=== PATIENT | male | born 1960 | race Caucasian/White ===

== ENCOUNTER 2024-01-19 12:45 | Inpatient (IN) | payer OTHER, SELFPAY ==
--- NOTE | ~2024-01-19 | US_ITS ---
Duplex Sonography of the bilateral lower extremities: Indication: Edema Sagittal and transverse B-mode images as well as color-flow imaging were performed on the right and l eft femoral and popliteal veins. B-mode examination was done without and with compression in the tra nsverse plane. There is good visualization of the bilateral common femoral, proximal profunda femora l, superficial femoral, greater saphenous, and popliteal veins. Normal flow was seen on color-flow im aging. Normal compressibility was demonstrated. Visualized calf veins are also patent. Impression: No evidence of deep vein thrombosis involving either lower extremity. Reviewed, dictated and finalized at location M. ARTIST Impression: No evidence of deep vein thrombosis involving either lower extremit y.
--- NOTE | ~2024-01-19 | XR_ITS ---
EXAMINATION: XR chest 1V portable DATE: 01/19/2024 13:37 INDICATION: Central line placement. TECHNIQUE: A single frontal view of the chest was obtained. COMPARISON: None. FINDINGS: There is mild atelectasis in the lower lung zones. No pleural effusion or pneumothorax. The heart size is normal. A right upper extremity peripherally inserted central venous catheter (PICC) i s seen with tip at the superior cavoatrial junction. There are changes of posterior fusion procedure in lumbar spine. There are old healed right rib fractures. IMPRESSION: 1. PICC tip at the superior cavoatrial junction. 2. Mild atelectasis in the lower lung zones. Reviewed, dictated and finalized at location A. UD LINE TIER
--- NOTE | ~2024-01-19 | XR_ITS ---
EXAM: XR abdomen gastric tube insert DATE: 01/19/2024 16:09 HISTORY: NGT PLACEMENT CONFIRMATION . COMPARISON: CT abdomen pelvis, same date. FINDINGS: NG tube, tip over the stomach, side port near the GE junction. Uncomplicated thoracolumbar fusion hardware. Multilevel degenerative disc disease. Lung bases clear. Scattered loops of dilated large and small bowel. IMPRESSION: Shallow positioned NG tube, side port near the GE junction, consider advancing by 5 cm. L ikely small and large bowel ileus. Reviewed, dictated and finalized at location K. EYOR BELT INSTALLER IMPRESSION: Shallow positioned NG tube, side port near the GE junction, conside r advancing by 5 cm. Likely small and large bowel ileus.
--- NOTE | ~2024-01-19 | XR_ITS ---
Supine and upright views of the abdomen Clinical history: Ileus Findings: Multiple air distended bowel loops are present, possibly representing generalized ileus. No definite obstruction. No definite free air. No abnormal mass lesion or calcification is seen. Thorac olumbar spinal fixation hardware noted. Impression: Possible generalized ileus. Reviewed, dictated and finalized at [facility]. URCE CENTER TEACHER Impression: Possible generalized ileus.
--- NOTE | ~2024-01-19 | CT_ITS ---
EXAMINATION: CT abdomen pelvis w con DATE: 01/19/2024 14:36 INDICATION: Abdominal pain TECHNIQUE: Computed tomography (CT) of the abdomen and pelvis was performed with 100 mL Omnipaque-350 intravenous contrast. Automated exposure control and iterative reconstruction technique were employe d. The dose-length product was 1348.44 mGy-cm. COMPARISON: None. FINDINGS: Exam limited by motion artifact and beam hardening artifact. Lower thorax: The tip of a catheter is identified in the distal SVC. Bibasilar scar/atelectasis. Liver: Trace perihepatic fluid. Biliary/Gallbladder: Gallbladder is normal. No bile duct dilation. Pancreas: Moderate atrophy. Spleen: Normal. Adrenals:No mass. Kidneys: No suspicious mass, obstructing stone, or hydronephrosis. GI tract: Mild dilation of the mid and distal small bowel without focal transition point. Dilated tra nsverse colon. Fluid-filled small and large bowel. Appendix not confidently visualized. Mesentery/Peritoneum: No mass or free air. Trace paracolic gutter fluid. Retroperitoneum: No mass. Atherosclerotic abdominal aortic and/or arterial calcifications. Pelvis: Nearly empty urinary bladder. Trace free pelvic fluid. Soft Tissues: Mild body wall edema. Small uncomplicated fat-containing bilateral inguinal hernias. Bones: No acute osseous finding. Uncomplicated appearing thoracolumbar fusion hardware. IMPRESSION: Likely small bowel ileus, early obstruction not excluded. Chronic colonic dilation versus colonic ile us. Fluid-filled colon as can be seen with diarrheal illness. Mild ascites. Reviewed, dictated and finalized at location K. ORK PROFESSIONAL IMPRESSION: Likely small bowel ileus, early obstruction not excluded. Chronic colonic dilat ion versus colonic ileus. Fluid-filled colon as can be seen with diarrheal illn ess. Mild ascites.
[2024-01-19 12:50] VITALS: BP 138/108; PULSE 94; RESP 16; TEMP 36.3; O2SAT 98
[2024-01-19 13:39] LABS: Basophils Percent Auto 0.3 % (0.2-1.2); Eosinophils Percent Auto 0.5 % (0-4.4); Hematocrit 31.4 % (42.0-52.0); Hemoglobin 10.4 g/dL (14.0-18.0); Immature Granulocyte Absolute 0.07 K/mm3 (0.00-0.031); Immature Granulocyte Percent A 1.1 % (0-0.5); Lymphocytes Absolute Auto 1.14 K/mm3 (0.9-3.2); Lymphocytes Percent Auto 18.5 % (18.3-44.2); Mean Corpuscular HGB Conc 33.1 g/dl (32-36); Mean Corpuscular Hemoglobin 30.3 pg (26-34); Mean Corpuscular Volume 91.5 fl (80-100); Monocytes Absolute Auto 0.4 K/mm3 (0.1-0.6); Monocytes Percent Auto 7.2 % (2.6-8.5); Neutrophils Absolute Auto 4.5 K/mm3 (1.3-6.7); Neutrophils Percent Auto 72.4 % (45.5-73.1); Platelet Count Result 253 k/mm3 (150-375); Red Blood Count 3.43 M/mm3 (4.6-6.20); Red Cell Distribution Width 17.2 % (11.5-14.5); White Blood Count 6.2 K/mm3 (4.5-10.0)
[2024-01-19 13:47] LABS: Lactic Acid Reflex 1.1 mmol/L (0.7-2.0)
[2024-01-19 13:49] LABS: Alanine Aminotransferase 15 U/L (6-50); Alkaline Phosphatase 113 U/L (38-126); Anion Gap 8 mmol/L (4-12); Aspartate Amino Transferase 31 U/L (17-59); Bilirubin,Total 0.5 mg/dL (0.2-1.3); Blood Urea Nitrogen 12 mg/dL (9-20); Calcium 8.9 mg/dL (8.4-10.2); Carbon Dioxide 24 mmol/L (22-30); Chloride 102 mmol/L (98-107); Estimated CRCL calculation 128 ml/min; Estimated Glomerular Filt Rate > 60; Glucose 116 mg/dL (65-110); Lipase 33 U/L (23-300); Potassium 3.8 mmol/L (3.4-5.0); Sodium 134 mmol/L (137-145)
[2024-01-19 14:00] VITALS: BP 130/88; PULSE 90; RESP 16; O2SAT 100
[2024-01-19] MEDS: ONDANSETRON INJ 4 MG/2 ML VIAL IV PUSH (14:00)
[2024-01-19 14:09] LABS: Add Urine Microscopic? YES; Appearance Urine Turbid (Clear); Bacteria Urine None Seen /hpf; Bilirubin Urine 1+ (Negative); Blood Urine Trace (Negative); Color Urine Dark Yellow (Yellow); Glucose Urine UA Negative (Negative); Hyaline Casts Urine Present /lpf; Ketones Urine Trace mg/dL (Negative); Leukocyte Esterase Ur 2+ LEU/UL (Negative); Nitrate Urine Negative (Negative); Non Pathogenic Casts >20; Protein Urine 1+ mg/dL (Negative); Specific Grav Ur 1.021 (1.001-1.035); Squamous Epithelial Cell Urine None Seen /hpf (Few); Urobilinogen Urine 0.2 mg/dL (<2.0); WBC Urine >100 /hpf (0-3)
--- NOTE | 2024-01-19 14:23 | ED.GENADULT ---
HPI - General Adult General Chief complaint: Nausea/Vomiting/Diarrhea Stated complaint: ileus, n/v Time Seen by Provider: 01/19/24 13:03 History of Present Illness HPI narrative: Patient 63-year-old gentleman who presents emergency department with chief complaint of nausea and vomiting. Patient has had nausea and vomiting for last 2 days had an x-ray at [facility] that showed a possible ileus the patient has been having bowel movements and had a bowel movement just prior to arriving in the emergency department the provider at the rehab facility sent the patient in the emergency department to evaluate for possible bowel obstruction. The patient states that he has nausea reports that he has a little bit of a fullness in his abdomen but denies localizing pain Related Data Home Medications Medication Instructions Recorded Confirmed aspirin 81 mg chewable tablet 81 mg PO DAILY 01/02/24 01/02/24 bisacodyl 10 mg rectal suppository 10 mg RECTAL DAILY PRN Constipation 01/02/24 01/02/24 cyclobenzaprine 10 mg tablet 10 mg PO BID 01/02/24 01/02/24 ergocalciferol (vitamin D2) 1,250 1,250 mcg PO WEEKLY 01/02/24 01/02/24 mcg (50,000 unit) capsule folic acid 1 mg tablet 1 mg PO DAILY 01/02/24 01/02/24 lactulose 10 gram/15 mL oral 30 ml PO BID 01/02/24 01/02/24 solution (Enulose) multivitamin with minerals (Daily 1 tablet PO DAILY 01/02/24 01/02/24 Multivitamin-Minerals tablet) ondansetron 4 mg disintegrating 4 mg PO Q6H PRN Nausea And Vomiting 01/02/24 01/02/24 tablet oxycodone 5 mg tablet 5 mg PO Q6H PRN Pain 01/02/24 01/02/24 polyethylene glycol 3350 17 gram 17 g PO BID 01/02/24 01/02/24 oral powder packet (Miralax) potassium chloride 20 mEq oral 20 meq PO DAILY 01/02/24 01/02/24 packet (Klor-Con) sennosides 8.6 mg tablet 8.6 mg PO BID 01/02/24 01/02/24 tamsulosin 0.4 mg capsule 0.4 mg PO DAILY 01/02/24 01/02/24 Allergies Allergy/AdvReac Type Severity Reaction Status Date / Time acetaminophen [From Vicodin] Allergy Unknown Verified 01/19/24 13:00 hydrocodone [From Vicodin] Allergy Unknown Verified 01/19/24 13:00 Review of Systems Review of Systems: A 10 system review of systems was completed on the patient and is negative except for what is stated in the HPI. Nursing and ancillary documentation was reviewed. [facility] Past Medical History Medical History Anemia in chronic illness Compression fracture of L1 lumbar vertebra Critical illness myopathy Gait abnormality History of sepsis Ileus Unintentional weight loss Urinary retention Social History Social History Smoking status: Former smoker Tobacco type: cigarettes Second hand tobacco smoke exposure: No Alcohol intake: former Substance use: never Substance use type: does not use Do You Feel Safe in your Home?: Yes Lack of Transportation: No Lack of Food: Never True Current Housing: I Have Housing Concerned About Future Housing: No Difficulty Paying Gas/Electric Bills: No Difficulty Paying for Meds: No Currently Unemployed: No Education: High School Diploma/GED Difficulty w/ Childcare or Family Care: No Spiritual care concerns: Yes (roman catholic) Exam Narrative: GENERAL: Well-appearing, well-nourished, and in no acute distress. HEAD: Normocephalic, atraumatic. EYES: PERRLA and EOMI. ENT: Nares clear, no rhinorrhea or epistaxis. Mucous membranes moist. NECK: Supple. CHEST: Clear to auscultation. No respiratory distress. HEART: Regular rate and rhythm. No murmur heard. Normal peripheral pulses. ABDOMEN: Soft, nontender, nondistended, normal active bowel sounds. EXTREMITIES: Normal range of motion. No edema. PICC line present in the right upper extremity SKIN: Warm, dry, no rash. NEURO: No focal deficits. Alert and oriented x3. PSYCH: Normal mood and affect. Course Vital Signs Vital signs: Vital Signs Temperature 36.3 C L 01/19/24 12:50 Pulse Rate 94 01/19/24 12:50 Respiratory Rate 16 01/19/24 12:50 Blood Pressure 138/108 H 01/19/24 12:50 Pulse Oximetry 98 01/19/24 12:50 Oxygen Delivery Room Air 01/19/24 12:50 Temperature 36.3 C L 01/19/24 12:50 Pulse Rate 94 01/19/24 12:50 Respiratory Rate 16 01/19/24 12:50 Blood Pressure 138/108 H 01/19/24 12:50 Pulse Oximetry 98 01/19/24 12:50 Oxygen Delivery Room Air 01/19/24 12:50 Medical Decision Making MDM Narrative Medical decision making narrative: Differential diagnosis includes bowel obstruction, ileus, partial small bowel obstruction, UTI, electrolyte abnormality, dehydration Laboratory studies were obtained on the patient showed a CBC with white count of 6.2 electrolytes were otherwise within normal limits urinalysis showed greater than 100 white blood cells in the urine CT scan of the abdomen pelvis showed a possible small partial small-bowel obstruction. NG tube will be placed and the patient will be started on antibiotic and the patient will be admitted for observation Vital Signs Vital Signs: Vital Signs Temperature 36.3 C L 01/19/24 12:50 Pulse Rate 94 01/19/24 12:50 Respiratory Rate 16 01/19/24 12:50 Blood Pressure 138/108 H 01/19/24 12:50 Pulse Oximetry 98 01/19/24 12:50 Oxygen Delivery Room Air 01/19/24 12:50 Temperature 36.3 C L 01/19/24 12:50 Pulse Rate 94 01/19/24 12:50 Respiratory Rate 16 01/19/24 12:50 Blood Pressure 138/108 H 01/19/24 12:50 Pulse Oximetry 98 01/19/24 12:50 Oxygen Delivery Room Air 01/19/24 12:50 Lab Data 01/19/24 13:30 01/19/24 13:30 Labs: Lab Results 01/19/24 01/19/24 Range/Units 13:30 13:54 WBC 6.2 (4.5-10.0) K/mm3 RBC 3.43 L (4.6-6.20) M/mm3 Hgb 10.4 L (14.0-18.0) g/dL Hct 31.4 L (42.0-52.0) % MCV 91.5 (80-100) fl MCH 30.3 (26-34) pg MCHC 33.1 (32-36) g/dl RDW 17.2 H (11.5-14.5) % Plt Count 253 (150-375) k/mm3 MPV 9.0 (7.4-10.4) fl Immature Gran % (Auto) 1.1 H (0-0.5) % Neut % (Auto) 72.4 (45.5-73.1) % Lymph % (Auto) 18.5 (18.3-44.2) % [place] % (Auto) 7.2 (2.6-8.5) % Eos % (Auto) 0.5 (0-4.4) % Baso % (Auto) 0.3 (0.2-1.2) % Lymph # (Auto) 1.14 (0.9-3.2) K/mm3 [place] # (Auto) 0.4 (0.1-0.6) K/mm3 Eos # (Auto) 0.0 (0-0.3) K/mm3 Baso # (Auto) 0.0 (0.0-0.1) K/mm3 Abs Immat Gran (auto) 0.07 H (0.00-0.031) K/mm3 Absolute Neuts (auto) 4.5 (1.3-6.7) K/mm3 Absolute Nucleated RBC 0.000 (0.0-0.012) K/mm3 Nucleated RBC % 0.0 (0.0-0.2) % Sodium 134 L (137-145) mmol/L Potassium 3.8 (3.4-5.0) mmol/L Chloride 102 (98-107) mmol/L Carbon Dioxide 24 (22-30) mmol/L Anion Gap 8 (4-12) mmol/L BUN 12 D (9-20) mg/dL Creatinine 0.60 L (0.7-1.3) mg/dL Estim Creat Clear Calc 128 ml/min Estimated GFR > 60 (59 - ) Glucose 116 H (65-110) mg/dL Lactic Acid 1.1 (0.7-2.0) mmol/L Calcium 8.9 (8.4-10.2) mg/dL Total Bilirubin 0.5 (0.2-1.3) mg/dL AST 31 (17-59) U/L ALT 15 (6-50) U/L Alkaline Phosphatase 113 (38-126) U/L Total Protein 7.0 (6.3-8.2) g/dL Albumin 3.0 L (3.5-5.1) g/dL Lipase 33 (23-300) U/L Urine Color Dark yellow (Yellow) Urine Appearance Turbid H (Clear) Urine pH 5.0 (5.0-9.0) Ur Specific [place] 1.021 (1.001-1.035) Urine Protein 1+ H (Negative) mg/dL Urine Glucose (UA) Negative (Negative) mg/dL Urine Ketones Trace H (Negative) mg/dL Ur Blood (Man) Trace (Negative) Urine Nitrate Negative (Negative) Urine Bilirubin 1+ H (Negative) Urine Urobilinogen 0.2 (<2.0) mg/dL Leukocyte Esterase Rfl 2+ H (Negative) HERACLIO/UL Urine RBC 3-5 H (0-2) /hpf Urine WBC >100 H (0-3) /hpf Ur Squamous Epith Cells None seen (Few) /hpf Urine Bacteria None seen /hpf Urine Casts >20 Hyaline Casts Present (None) /lpf Discharge Plan Discharge Clinical Impression: Nausea & vomiting, Ileus, Acute UTI Patient Disposition: Still a Patient Condition: Stable Prescriptions: No Action cyclobenzaprine 10 mg Tablet 10 mg PO BID polyethylene glycol 3350 [Miralax] 17 gram Powder In Packet 17 g PO BID bisacodyl 10 mg Suppository 10 mg RECTAL DAILY PRN (Reason: Constipation) folic acid 1 mg Tablet 1 mg PO DAILY ergocalciferol (vitamin D2) 1,250 mcg (50,000 unit) Capsule 1,250 mcg PO WEEKLY Rx Instructions: on Mondays Daily Multivitamin-Minerals Tablet 1 tablet PO DAILY lactulose [Enulose] 10 gram/15 mL Solution 30 ml PO BID sennosides 8.6 mg Tablet 8.6 mg PO BID potassium chloride [Klor-Con] 20 mEq Packet 20 meq PO DAILY tamsulosin 0.4 mg Capsule 0.4 mg PO DAILY ondansetron 4 mg Tablet,Disintegrating 4 mg PO Q6H PRN (Reason: Nausea And Vomiting) oxycodone 5 mg Tablet 5 mg PO Q6H PRN (Reason: Pain) aspirin 81 mg Tablet,Chewable 81 mg PO DAILY Follow-up/Referrals: Karan,MD Amandeep [Primary Care Provider] - Time of Disposition: 15:38
[2024-01-19 15:00] VITALS: BP 129/97; PULSE 88; RESP 16; O2SAT 100
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
[2024-01-19 16:00] VITALS: BP 130/90; PULSE 90; RESP 16; O2SAT 100
--- NOTE | 2024-01-19 16:55 | ADMGEN ---
This patient, Xavi Michele, was admitted to Medical Room 349-01. Patient/family oriented to hospital policies and general routines including ID bracelet, bed and alarms, visiting hours, pain management, procedures, bathroom and other care routines, personal items, smoking policy, room service/diet, and visiting hours. Information on how to activate the Rapid Response Team has been discussed. Patient/Family are encouraged to report perceived risks to care and to ask questions if they do not understand what they are told or what they should do.
[2024-01-19 17:10] VITALS: BMI 34.9
[2024-01-19] MEDS: SODIUM CHLORIDE 0.9% IV 1,000 ML 125 ML IV CONT (17:32)
[2024-01-19] MEDS: PHENOL/SOD PHENO SPRAY CHERRY (*BKC) 1 SPRAY MUCOUS MEM (18:48)
[2024-01-19 19:21] LABS: MRSA (PCR) NOT DETECTED (NOT DETECTE)
[2024-01-19 21:05] VITALS: BP 126/67; PULSE 84; RESP 16; TEMP 36.4; O2SAT 100
[2024-01-20 05:43] VITALS: BP 112/73; PULSE 84; RESP 16; TEMP 36.5; O2SAT 100
[2024-01-20] MEDS: SODIUM CHLORIDE 0.9% IV 1,000 ML 100 ML IV CONT ×2 (05:45→11:11)
[2024-01-20 05:55] LABS: Hematocrit 27.1 % (42.0-52.0); Mean Corpuscular HGB Conc 33.2 g/dl (32-36); Mean Corpuscular Hemoglobin 31.3 pg (26-34); Mean Corpuscular Volume 94.1 fl (80-100); Mean Platelet Volume 8.7 fl (7.4-10.4); Platelet Count Result 187 k/mm3 (150-375); Red Blood Count 2.88 M/mm3 (4.6-6.20); Red Cell Distribution Width 17.7 % (11.5-14.5); White Blood Count 5.1 K/mm3 (4.5-10.0)
[2024-01-20 06:07] LABS: Potassium 3.2 mmol/L (3.4-5.0)
[2024-01-20 06:12] LABS: Anion Gap 3 mmol/L (4-12); Blood Urea Nitrogen 11 mg/dL (9-20); Calcium 7.8 mg/dL (8.4-10.2); Carbon Dioxide 25 mmol/L (22-30); Chloride 107 mmol/L (98-107); Estimated CRCL calculation 128 ml/min; Estimated Glomerular Filt Rate > 60; Glucose 82 mg/dL (65-110); Magnesium 2.1 mg/dL (1.6-2.3); Sodium 135 mmol/L (137-145)
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
[2024-01-20 15:10] VITALS: BP 107/74; PULSE 80; RESP 16; TEMP 37; O2SAT 99
[2024-01-20 16:02] VITALS: O2SAT 95
[2024-01-20 21:49] VITALS: BP 100/60; PULSE 83; RESP 20; TEMP 36.6; O2SAT 100
[2024-01-21 06:00] VITALS: BP 115/87; PULSE 74; RESP 20; TEMP 36.3; O2SAT 99
[2024-01-21 06:53] LABS: Hematocrit 25.9 % (42.0-52.0); Hemoglobin 8.3 g/dL (14.0-18.0); Mean Corpuscular Hemoglobin 30.6 pg (26-34); Mean Corpuscular Volume 95.6 fl (80-100); Mean Platelet Volume 9.8 fl (7.4-10.4); Platelet Count Result 166 k/mm3 (150-375); Red Blood Count 2.71 M/mm3 (4.6-6.20); Red Cell Distribution Width 17.5 % (11.5-14.5); White Blood Count 3.9 K/mm3 (4.5-10.0)
[2024-01-21 07:09] LABS: Potassium 2.8 mmol/L (3.4-5.0)
[2024-01-21 07:18] VITALS: O2SAT 99
[2024-01-21 07:25] LABS: Anion Gap 4 mmol/L (4-12); Blood Urea Nitrogen 11 mg/dL (9-20); Calcium 7.8 mg/dL (8.4-10.2); Carbon Dioxide 26 mmol/L (22-30); Chloride 106 mmol/L (98-107); Estimated CRCL calculation 111 ml/min; Estimated Glomerular Filt Rate > 60; Glucose 82 mg/dL (65-110); Sodium 136 mmol/L (137-145)
[2024-01-21] MEDS: POTASSIUM CHLORIDE INJ 40 MEQ in SODIUM CHLORIDE 0.9% IV 500 ML 130 MEQ IVPB (08:53)
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
[2024-01-21] MEDS: LIDOCAINE 5% PATCH 1 PATCH TRANSDERM (12:32)
[2024-01-21] MEDS: CENTRAL LINE FLUSH 10 ML IV PUSH (13:17)
[2024-01-21 13:53] VITALS: BMI 35.0
[2024-01-21 14:00] VITALS: BP 101/74; PULSE 84; RESP 16; TEMP 36.7; O2SAT 98
[2024-01-21 21:45] VITALS: BP 107/65; PULSE 86; RESP 20; TEMP 36.2; O2SAT 100
[2024-01-22] MEDS: CENTRAL LINE FLUSH 10 ML IV PUSH (00:34)
[2024-01-22 05:50] LABS: Hematocrit 24.1 % (42.0-52.0); Mean Corpuscular HGB Conc 33.2 g/dl (32-36); Mean Corpuscular Volume 93.4 fl (80-100); Mean Platelet Volume 8.8 fl (7.4-10.4); Platelet Count Result 147 k/mm3 (150-375); Red Blood Count 2.58 M/mm3 (4.6-6.20); Red Cell Distribution Width 17.2 % (11.5-14.5); White Blood Count 3.9 K/mm3 (4.5-10.0)
[2024-01-22 06:00] VITALS: BP 113/66; PULSE 71; RESP 20; TEMP 36.1; O2SAT 99
[2024-01-22 06:02] LABS: Anion Gap 3 mmol/L (4-12); Blood Urea Nitrogen 10 mg/dL (9-20); Calcium 7.5 mg/dL (8.4-10.2); Carbon Dioxide 25 mmol/L (22-30); Chloride 107 mmol/L (98-107); Estimated CRCL calculation 128 ml/min; Estimated Glomerular Filt Rate > 60; Glucose 80 mg/dL (65-110); Magnesium 1.9 mg/dL (1.6-2.3); Potassium 2.9 mmol/L (3.4-5.0); Sodium 135 mmol/L (137-145)
[2024-01-22] MEDS: LIDOCAINE 5% PATCH 1 PATCH TRANSDERM (09:35)
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
[2024-01-22] MEDS: NEOMYCIN/POLYMYXIN/BACITRACIN OINTMENT PACKET 1 PACKET (12:55)
--- NOTE | 2024-01-22 13:02 | PC.NURSE ---
RN called to give report to HAIR. Nurse that answered stated to call back in 5 minutes as she has to take the charge nurse the phone.
== END 2024-01-22 13:45 | DRG 389 ==
LOC: ANHED 15:38 → ANH3MED 16:41
PROVIDERS: Physician Assistant; Admitting Provider Internal Medicine; Emergency Provider Emergency Medicine; PCP Family Medicine; Visit Provider Nurse Practitioner
DX: K56.7 Ileus, unspecified (principal); G72.81 Critical illness myopathy; D63.8 Anemia in other chronic diseases classified elsewhere; I10 Essential (primary) hypertension; E87.6 Hypokalemia; E78.5 Hyperlipidemia, unspecified; I73.9 Peripheral vascular disease, unspecified; R33.9 Retention of urine, unspecified; R26.9 Unspecified abnormalities of gait and mobility; Z79.82 Long term (current) use of aspirin; Z86.73 Personal history of transient ischemic attack (TIA), and cerebral infarction without residual deficits; Z87.891 Personal history of nicotine dependence
CPT/HCPCS: 36415; 71045; 74019; 74177; 80048; 80053; 81001; 83605; 83690; 83735; 85025; 85027; 87040; 87086; 87641; 93970; 96361; 96365; 96375; 97110; 97112; 97162; 97165; 97530; 97535; 99285; A9270; G0378; J0696; J2405; J3480; J7030; J7040; Q9967